=== PATIENT | female | born 1995 | race Caucasian/White ===

== ENCOUNTER 2016-11-28 10:44 | Outpatient (CLI) | payer OTHER | END 2016-11-28 10:45 | disposition home or self-care (01) | LOC: NC 10:44 | PROVIDERS: ATTEND Family Medicine | DX: O24.419 Gestational diabetes mellitus in pregnancy, unspecified control (principal); Z71.3 Dietary counseling and surveillance; Z68.30 Body mass index [BMI] 30.0-30.9, adult; Z3A.00 Weeks of gestation of pregnancy not specified ==

== ENCOUNTER 2016-12-09 11:02 | Outpatient (CLI) | payer OTHER ==
--- NOTE | 2016-12-09 13:09 | US ---
OB LIMITED COMPARISON: 12/07/2016 obstetric ultrasound limited HISTORY: Gestational age 32 weeks 1 day. hydronephrosis. Gestational diabetes Check amniotic fluid index. Technique: Transabdominal FINDINGS: position: Vertex heart rate: 150 bpm Amniotic fluid index: 14.8 cm (14.4 cm 50th percentile). kidneys: Right kidney renal pelvis diameter 6.6 mm. Left kidney renal pelvis diameter 4.4 mm. bladder and stomach: Normal, fluid-filled. IMPRESSION: 1. Normal amniotic fluid index 14.8 cm. 2. Right kidney grade 1 pelviectasis with renal pelvis diameters 6.6 mm. 97% of the babies with grade 1 pelviectasis have normal renal function. 3. Normal left kidney renal pelvis diameter of 4.4 mm.
== END 2016-12-09 11:52 | disposition home or self-care (01) ==
LOC: FBCOUT 11:02 → FBC 11:03 → FBCOUT 11:52
PROVIDERS: ATTEND Family Medicine
DX: O24.419 Gestational diabetes mellitus in pregnancy, unspecified control (principal); O36.8930 Maternal care for other specified fetal problems, third trimester, not applicable or unspecified; Z3A.32 32 weeks gestation of pregnancy

== ENCOUNTER 2016-12-12 11:18 | Outpatient (CLI) | payer OTHER ==
[2016-12-12 11:33] VITALS: BMI 30.6
== END 2016-12-12 12:13 | disposition home or self-care (01) ==
LOC: FBCOUT 11:18 → FBC 11:19 → FBCOUT 12:13
PROVIDERS: ATTEND Family Medicine
DX: O24.419 Gestational diabetes mellitus in pregnancy, unspecified control (principal); Z3A.00 Weeks of gestation of pregnancy not specified

== ENCOUNTER 2016-12-16 11:33 | Outpatient (CLI) | payer OTHER | END 2016-12-16 12:30 | disposition home or self-care (01) | LOC: FBCOUT 11:33 → FBC 11:34 → FBCOUT 12:30 | PROVIDERS: ATTEND Family Medicine | DX: O24.419 Gestational diabetes mellitus in pregnancy, unspecified control (principal); Z3A.00 Weeks of gestation of pregnancy not specified ==

== ENCOUNTER 2016-12-19 11:32 | Outpatient (CLI) | payer OTHER ==
[2016-12-19 11:59] VITALS: BMI 30.9
== END 2016-12-19 12:38 | disposition home or self-care (01) ==
LOC: FBCOUT 11:32 → FBC 11:40 → FBCOUT 12:38
PROVIDERS: ATTEND Family Medicine
DX: O24.415 Gestational diabetes mellitus in pregnancy, controlled by oral hypoglycemic drugs (principal); Z3A.00 Weeks of gestation of pregnancy not specified

== ENCOUNTER 2016-12-23 11:26 | Outpatient (CLI) | payer OTHER ==
[2016-12-23 11:47] VITALS: BMI 29.8
== END 2016-12-23 12:24 | disposition home or self-care (01) ==
LOC: FBCOUT 11:26 → FBC 11:27 → FBCOUT 12:24
PROVIDERS: ATTEND Family Medicine
DX: O24.415 Gestational diabetes mellitus in pregnancy, controlled by oral hypoglycemic drugs (principal); Z3A.34 34 weeks gestation of pregnancy

== ENCOUNTER 2016-12-26 11:38 | Outpatient (CLI) | payer OTHER | END 2016-12-26 12:25 | disposition home or self-care (01) | LOC: FBC 11:38 → FBCOUT 11:38 | PROVIDERS: ATTEND Family Medicine | DX: O24.419 Gestational diabetes mellitus in pregnancy, unspecified control (principal); Z3A.00 Weeks of gestation of pregnancy not specified ==

== ENCOUNTER 2016-12-30 11:31 | Outpatient (CLI) | payer OTHER ==
[2016-12-30 11:57] VITALS: BMI 30.6
== END 2016-12-30 12:37 | disposition home or self-care (01) ==
LOC: FBCOUT 11:31 → FBC 11:32 → FBCOUT 12:37
PROVIDERS: ATTEND Family Medicine
DX: O26.899 Other specified pregnancy related conditions, unspecified trimester (principal); O24.419 Gestational diabetes mellitus in pregnancy, unspecified control; Z3A.35 35 weeks gestation of pregnancy
CPT/HCPCS: 87081; 76816; 59025; G0463

== ENCOUNTER 2017-01-02 11:40 | Outpatient (CLI) | payer OTHER ==
[2017-01-02 11:56] VITALS: BMI 31.5
== END 2017-01-02 12:24 | disposition home or self-care (01) ==
LOC: FBCOUT 11:40 → FBC 11:50 → FBCOUT 12:24
PROVIDERS: ATTEND Family Medicine
DX: O24.415 Gestational diabetes mellitus in pregnancy, controlled by oral hypoglycemic drugs (principal); Z3A.35 35 weeks gestation of pregnancy

== ENCOUNTER 2017-01-06 11:29 | Outpatient (CLI) | payer OTHER | END 2017-01-06 12:08 | disposition home or self-care (01) | LOC: FBCOUT 11:29 → FBC 11:31 → FBCOUT 12:08 | PROVIDERS: ATTEND Family Medicine | DX: O24.415 Gestational diabetes mellitus in pregnancy, controlled by oral hypoglycemic drugs (principal); Z3A.36 36 weeks gestation of pregnancy ==

== ENCOUNTER 2017-01-09 11:21 | Outpatient (CLI) | payer OTHER | END 2017-01-09 12:14 | disposition home or self-care (01) | LOC: FBCOUT 11:21 → FBC 11:22 → FBCOUT 12:14 | PROVIDERS: ATTEND Family Medicine | DX: O24.415 Gestational diabetes mellitus in pregnancy, controlled by oral hypoglycemic drugs (principal); Z3A.36 36 weeks gestation of pregnancy ==

== ENCOUNTER 2017-01-13 11:56 | Outpatient (CLI) | payer OTHER ==
[2017-01-13 12:16] VITALS: BMI 31.7
== END 2017-01-13 12:43 | disposition home or self-care (01) ==
LOC: FBCOUT 11:56 → FBC 12:13 → FBCOUT 12:43
PROVIDERS: ATTEND Family Medicine
DX: O24.415 Gestational diabetes mellitus in pregnancy, controlled by oral hypoglycemic drugs (principal); Z3A.37 37 weeks gestation of pregnancy

== ENCOUNTER 2017-01-16 11:24 | Outpatient (CLI) | payer OTHER | END 2017-01-16 12:10 | disposition home or self-care (01) | LOC: FBCOUT 11:24 → FBC 11:25 → FBCOUT 12:10 | PROVIDERS: ATTEND Family Medicine | DX: O24.419 Gestational diabetes mellitus in pregnancy, unspecified control (principal); Z36 Encounter for antenatal screening of mother; Z12.11 Encounter for screening for malignant neoplasm of colon; Z3A.37 37 weeks gestation of pregnancy ==

== ENCOUNTER 2017-01-20 11:19 | Outpatient (CLI) | payer OTHER | END 2017-01-20 12:25 | disposition home or self-care (01) | LOC: FBCOUT 11:19 → FBC 11:20 → FBCOUT 12:25 | PROVIDERS: ATTEND Family Medicine | DX: O24.419 Gestational diabetes mellitus in pregnancy, unspecified control (principal); Z3A.00 Weeks of gestation of pregnancy not specified ==

== ENCOUNTER 2017-01-24 16:00 | Inpatient (IN) | payer OTHER ==
[2017-01-24] MEDS ORDERED: LIDOCAINE Viscous 2% 15 ML UDCUP ONE (16:32)
[2017-01-24] MEDS ORDERED: SODIUM CHLORIDE 0.9% FLUSH 10 ML ONE (16:32)
[2017-01-24] MEDS ORDERED: MINERAL OIL 25 ML BOT ONE (16:32)
[2017-01-24] MEDS ORDERED: OXYTOCIN 10 UNITS/ML VIAL ONE (16:32)
[2017-01-24] MEDS ORDERED: LIDOCAINE 1% (PRES FREE) 30 ML VIAL ONE (16:32)
[2017-01-24] MEDS ORDERED: IV START KIT ONE (16:32)
[2017-01-24] MEDS ORDERED: OXYTOCIN IN LR 500 ML IV ONE (16:33)
[2017-01-24] MEDS ORDERED: PUMP TUBING ONE (16:33)
[2017-01-24 17:55] VITALS: BMI 31.7
[2017-01-24] MEDS ORDERED: PENICILLIN G POTASSIUM 5 MMU in NS 0.9% (MINI-BAG PLUS) 100 ML IV ONE (18:09)
--- NOTE | 2017-01-24 18:21 | PCMAN ---
OB Admission Note - History : 1 Term: 0 : 0 Abortions (S&E): 0 Livin Gestational Age (weeks): 39 Days (#/7): 0 Admit Cervical Dilation:: 1 Admit Cervical Effacement (%):: 50 (Macedo score 7) Admit Station:: -1 Admit Presentaton:: veretx Membrane Status: Intact Contractions: Yes Contraction Frequency:: irregular mild Summary of Course:: 21 y/o female w/ an WILMA of 01/31/17 by LMP c/w 1st trimester U/S. complicated by Chlamydia infection, GDMA2, Rubella non-immune and + GBS. Pt. is on 7.5mg of Glyburide BID. Her growth U/S at 35wks showed a fetus in the 63%. Pt. presents today for IOL secondary to GDMA2 status. Pt. has had intermittent cramping since Friday and lost her mucus plug a few days ago. Pt. denies HARDIN's , visual changes or SROMS. Had some vaginal spotting s/p having her membranes swipped on Friday. - Labs Blood Type: A (+) positive (antibody negative) Rubella Status: Non-immune GBS Status: Positive Abnormal Labs: Chlamydia Positive (07/12 +. JANAK ngtv. 08/11. 35wk screen ngtv) - Physical Exam General: Afebrile Psych/Mental Status: Mood/Affect Appropriate Neurological: Alert HEENT: Mucous membr. moist/pink Lungs: Clear to Auscultation Bilaterally Cardiovascular: Regular Rate and Rhythm, Rubs Genitourinary: Normal Female Genitalia Skin: Normal Color - Problems (1) Gestational diabetes mellitus (GDM) affecting Status: Acute Code: O24.419Assessment/Plan: Admit for IOL Almendarez bulb induction Macedo score7 See nusring orders for full BS monitoring and sliding scale
[2017-01-24] MEDS ORDERED: INSULIN ASPART (DOSE) 100 UNITS/1 ML SUB-Q PRN (18:23)
[2017-01-24 19:01] LABS: HEMOGLOBIN 12.4 gm/l (12.0-16.0); MEAN CELL VOLUME 95.1 fl (81.0-99.0); MEAN CORPUSCULAR HEMOGLOBIN 31.9 pg (27.0-31.0); MEAN CORPUSCULAR HGB CONC 33.5 g/dl (33.0-37.0)
[2017-01-24] MEDS ORDERED: ACETAMINOPHEN 500 MG TABLET PO PRN (19:34)
[2017-01-24] MEDS ORDERED: GLYBURIDE 5 MG TABLET PO SCH (20:00)
[2017-01-24] MEDS: GLYBURIDE 5 MG TABLET PO SCH (20:19)
[2017-01-24] MEDS ORDERED: ZOLPIDEM TARTRATE 5 MG TABLET PO ONE (22:30)
[2017-01-24] MEDS: LACTATED RINGERS 1,000 ML IV SCH (23:11)
[2017-01-25] MEDS: GLYBURIDE 5 MG TABLET PO SCH ×2 (08:08→21:28)
[2017-01-25] MEDS: PENICILLIN G 3 MIL UNIT PREMIX 3 MMU in Premix (D5W) 50 ml 1 EACH IV SCH ×3 (08:40→20:17)
--- NOTE | 2017-01-25 09:12 | PDOC36 ---
Provider Note Subject: S: NO U/V sympts. Almendarez catheter fell out over night, felt campy in the beginning but not since then. O: VSS, afebrile. BS max 126 overnight, not treated by nursing since fasting and over night, she was worried about hypoglycemia. . CVX: 2.5/50/-1 EFM:BL 130. Mod. variability. Accs. to 150. NO VD or LD. Category 1 strip (833- 988AM) [place]: irritability A/P: @ 39 1/7 wks GA GDMA2 Carrillo score 8. Given her primigravida status and GBS positive status I felt that a chemical cervical ripening agent would be the best course at this time. Start oral Cytotec protocol. Asses if not rick after 2 doses to see if no cervical change at that point consider AROM.
[2017-01-25] MEDS: MISOPROSTOL 25 MCG TABLET PO SCH ×3 (09:22→18:59)
[2017-01-25] MEDS ORDERED: NS 0.9% (MINI-BAG PLUS) 100 ML IV ONE (15:51)
[2017-01-25] MEDS ORDERED: PENICILLIN G POTASSIUM 5 MMU VIAL ONE (15:51)
[2017-01-25] MEDS ORDERED: PENICILLIN G POTASSIUM 5 MMU in NS 0.9% (MINI-BAG PLUS) 100 ML IV ONE (16:00)
[2017-01-25] MEDS: LACTATED RINGERS 1,000 ML IV SCH ×4 (16:16→22:40)
--- NOTE | 2017-01-25 16:28 | PDOC36 ---
Provider Note Subject: S: Pt. s/p 1 dose of Cytotec, feeling crampy pain w/ ctxs. Suzanne Q 4-5min despite receiving cytotec 6hrs ago. O: VSS, afebrile. BS's at goal cvx: /-1 FHT: ([id number]) BL 130 w/ accs to 150. Moderate variability. No VD or LD. CAtegory 1 strip Brock: ctxs Q 4-5 min A/P: 21 y/o female GDMA2 induction AROM performed, clear fluid PCN started. limit cervical checks from now on.
[2017-01-25] MEDS ORDERED: FENTANYL 100 MCG/2 ML VIAL IV ONE (17:35)
[2017-01-25] MEDS ORDERED: CALCIUM CARBONATE 500 MG TAB.CHEW PO PRN (17:36)
[2017-01-25] MEDS ORDERED: ONDANSETRON 4 MG/2ML 2 ML VIAL IM ONE (17:36)
[2017-01-25] MEDS ORDERED: EPIDURAL PUMP SET ONE (18:22)
[2017-01-25] MEDS ORDERED: FENTANYL/ROPIVACAINE EPIDURAL 250 ML EP ONE (18:22)
[2017-01-25] MEDS ORDERED: EPHEDRINE SULFATE 50 MG/ML 1ML VIAL IV PRN (19:00)
[2017-01-25] MEDS ORDERED: DIPHENHYDRAMINE HCL 50 MG/1 ML VIAL IV PRN (19:00)
[2017-01-25] MEDS ORDERED: SODIUM CHLORIDE 0.9% 500 ML IV PRN (19:00)
[2017-01-25] MEDS ORDERED: LACTATED RINGERS 500 ML IV PRN (19:00)
[2017-01-25] MEDS ORDERED: METOCLOPRAMIDE HCL 5 MG/ML 2ML VIAL IV PRN (19:00)
[2017-01-25] MEDS ORDERED: NALBUPHINE HCL 20 MG/ML AMP IV PRN (19:00)
[2017-01-25] MEDS ORDERED: NALOXONE HCL 0.4 MG/ML VIAL IV PRN (19:00)
[2017-01-25] MEDS: FENTANYL/ROPIVACAINE EPIDURAL 250 ML EP SCH (19:00)
[2017-01-25] MEDS ORDERED: ONDANSETRON 4 MG/2ML 2 ML VIAL IV PRN (19:00)
[2017-01-25] MEDS ORDERED: EPIDURAL PROCEDURE TRAY ONE (19:05)
[2017-01-25] MEDS ORDERED: PENICILLIN G 3 MIL UNIT PREMIX 50 ML IV ONE (20:03)
[2017-01-25] MEDS: OXYTOCIN IN LR 500 ML IV PRN (23:05)
[2017-01-26] MEDS ORDERED: PENICILLIN G 3 MIL UNIT PREMIX 50 ML IV ONE ×3 (00:04→08:30)
[2017-01-26] MEDS: PENICILLIN G 3 MIL UNIT PREMIX 3 MMU in Premix (D5W) 50 ml 1 EACH IV SCH ×3 (00:19→08:39)
[2017-01-26] MEDS: LACTATED RINGERS 1,000 ML IV SCH ×7 (02:53→12:25)
[2017-01-26] MEDS: FENTANYL/ROPIVACAINE EPIDURAL 250 ML EP SCH (06:21)
--- NOTE | 2017-01-26 07:23 | PDOC36 ---
Provider Note Subject: S: NO overnight events. Feeling some intense pain in the R hip area for the last 30 min or so. Per nursing has had some bloody show. Dose # 3 of PCN. O: Afebrile. VSS. BS's at goal. Non above 110 over night. 3MU of Pitocin. cvx: 9.5 (rim on the Right); 100%/+1 LOT position [place]: Ctxs Q2-5min FHT: [id number]. BL 135-140. Minimal to moderate variability. Accs. to 155. Category 1 strip. A/P: 21 y/o female 39 2/7 wks GA GDMA2 and GBS +. IOL for GDMA2. No evidence of infection at this time. slow progression of 1st stage due to mal position, but has made cervical change continue positional changes, specifically now exaggerated DAY on the Right in an effort to rotate baby. Continue PCN. Observe for signs of infection.
[2017-01-26] MEDS: OXYTOCIN IN LR 500 ML IV PRN ×3 (07:50→09:43)
[2017-01-26] MEDS: GLYBURIDE 5 MG TABLET PO SCH ×2 (08:42→15:15)
[2017-01-26] MEDS ORDERED: LIDOCAINE 1% (PRES FREE) 30 ML VIAL SUB-Q ONE (11:11)
[2017-01-26] MEDS ORDERED: OXYTOCIN IN LR 500 ML IV ONE (11:11)
[2017-01-26] MEDS ORDERED: LANOLIN 50 APPLIC/7G TUBE TP PRN (11:32)
[2017-01-26] MEDS ORDERED: BENZOCAINE/MENTHOL 60 APPLIC/BOT TP PRN (11:32)
[2017-01-26] MEDS ORDERED: HYDROCODONE/ACETAMINOPHEN 5/325MG TABLET PO PRN (11:32)
[2017-01-26] MEDS ORDERED: MEASLES,MUMPS&RUBELLA VACCINE 0.5 ML VIAL SUB-Q V ONE (11:32)
[2017-01-26] MEDS ORDERED: DOCUSATE SODIUM 100 MG CAPSULE PO PRN (11:32)
[2017-01-26] MEDS ORDERED: SODIUM CHLORIDE 0.9% FLUSH 0 ML ONE (11:55)
[2017-01-26] MEDS: IBUPROFEN 800 MG TABLET PO PRN (13:56)
[2017-01-26] MEDS ORDERED: GLYBURIDE 5 MG TABLET PO SCH (17:00)
[2017-01-27] MEDS: IBUPROFEN 800 MG TABLET PO PRN ×4 (01:36→21:43)
[2017-01-27 06:36] LABS: HEMATOCRIT 32.7 % (37.0-47.0)
--- NOTE | 2017-01-27 07:31 | PCMDEL ---
Delivery Note - Labor 1st stage (hr/min):: 07/01 2nd stage (hr/min):: 0 3rd stage (hr/min):: 0 Total (hr/min):: 07/31 - Delivery Delivery (Date): 01/26/17 Delivery (Time): 11:00 Infant Gender: Female Presentation: Cephalic Position: OA Umbilical Cord: 3 Vessel Delayed Cord Clamping:: > 3 min Placenta:: intact EBL:: 200mL Perineum:: 1 st degree vaginal Suture:: 3-0 vicryl Anesthesia/Meds:: LEP Length ROM:: 18' 55''
--- NOTE | 2017-01-27 07:48 | PDOC44 ---
- Subjective Day: 1 Reports Flatus, Reports Pain Tolerable, Reports , Reports Lochia Moderate - Objective Temp Pulse Resp BP Pulse Ox 98.9 F 75 16 120/72 01/27/17 01:23 01/27/17 01:23 01/27/17 01:23 01/27/17 01:23 Lab Results 01/27/17 06:15 Hgb 11.0 L Hct 32.7 L 01/27/17 01/26/17 01/26/17 06:33 19:44 15:13 POC Capillary Glucose 66 L 140 H 133 H Current Medications Generic Name Dose Route Start Last Admin Trade Name Freq PRN Reason Stop Dose Admin Acetaminophen/Hydrocodone Bitart 1 - 2 tab 01/26/17 11:32 Vershire 5/325 PO Q4H PRN Pain (Moderate) Benzocaine/Menthol 1 applic 01/26/17 11:32 01/26/17 11:59 Dermoplast TP 1 bot PRN PRN Administration Patient Comfort Docusate Sodium 100 mg 01/26/17 11:32 Colace PO DAILY PRN Comfort Emollient Ointment 1 applic 01/26/17 11:32 Rgb-G-Echpyy TP PRN PRN sore nipples Glyburide 7.5 mg 01/26/17 12:30 01/26/17 15:15 Diabeta PO Not Given 0800 SERJIO Glyburide 10 mg 01/26/17 17:00 01/26/17 18:04 Diabeta PO 10 mg 1700 SERJIO Administration Ropivacaine/Fentanyl/NS 250 mls @ 0 mls/hr 01/25/17 19:00 01/26/17 06:21 Fentanyl 2 Mcg/Ml + Ropivacaine 0.125% Ep Bag EP 15 mls/hr EPI SERJIO Administration Protocol Per Protocol Ibuprofen 800 mg 01/26/17 11:32 01/27/17 01:36 Motrin PO 800 mg Q6H PRN Administration Pain (Mild) - Physical Exam Psych/Mental Status: Mood/Affect Appropriate Neurological: Alert HEENT: Mucous membr. moist/pink Lungs: Clear to Auscultation Bilaterally Cardiovascular: Regular Rate and Rhythm, Normal S1, Normal S2 Breast: Soft Fundus: Below Umbilicus Abdomen: Normal Bowel Sounds - Problems:Assessment/Plan (1) Gestational diabetes mellitus (GDM) affecting Status: AcuteAssessment/Plan: Decrease Glyburide PM dose since tight control not as tightly needed cont. to encourage pt. to limit CHO's good colostrum supply despite being GDM (2) care and examination of lactating mother Status: AcuteAssessment/Plan: continue to support BF continue routine PP care observe for preclampsia even in PP period anticipate D/C tmw Disposition: Anticipate DC Home Tomorrow
[2017-01-27] MEDS: GLYBURIDE 5 MG TABLET PO SCH (09:45)
[2017-01-27] MEDS: FENTANYL/ROPIVACAINE EPIDURAL 250 ML EP SCH (16:00)
[2017-01-27] MEDS ORDERED: GLYBURIDE 2.5 MG TABLET PO SCH (19:45)
[2017-01-27] MEDS: GLYBURIDE 2.5 MG TABLET PO SCH (21:43)
[2017-01-28] MEDS: IBUPROFEN 800 MG TABLET PO PRN (03:16)
--- NOTE | 2017-01-28 07:47 | PDOC39B ---
Hospital Course: ADMIT DATE: 01/24/17 DISCHARGE DATE: 01/28/17 ADMISSION DIAGNOSES: GDMA2 GBS positive mom PROCEDURES: IOL; HISTORY OF PRESENT ILLNESS: 21 year old G1 T0 L0 at 39 weeks 2 days presenting for IOL for GMDA2. See admission note for full details. HOspital course: Admitted Folley bulb placed. Once bulb fell out Cytotect X 1 given. AROM performed hours after this since rick too often for 2nd Cytotec dose. Pt. had LEP placed and pitocin given for augementation of labor. Had ,. Seee delivery note for full details and times. By day of discharge the patient was ambulating, eating, voiding, and passing flatus without difficulty. Pain was controlled and lochia was appropriate. She was [] well - Physical Exam Vital Signs: Temp Pulse Resp BP Pulse Ox 98.5 F 75 16 123/73 01/28/17 03:12 01/28/17 03:12 01/28/17 03:12 01/28/17 03:12 General: Afebrile Psych/Mental Status: Mood/Affect Appropriate, Bonding Well Neurological: Alert HEENT: Mucous membr. moist/pink Lungs: Clear to Auscultation Bilaterally Cardiovascular: Regular Rate and Rhythm Fundus: Firm - Discharge Diagnosis (1) Gestational diabetes mellitus (GDM) affecting Status: AcuteAssessment/Plan: BS's coming down but Glyburide would benefit milk production therefore will D?C w/ Glyburide 1.25mg po BID and told pt. if FBS < 80 consistently and PP's < 140 consistently then could stop Glyburide all together. (2) care and examination of lactating mother Status: AcuteAssessment/Plan: continue to support BF continue routine PP care - Discharge Plan Condition: Good Disposition: Home Follow-Up: Maura Padgett MD [Primary Care Provider] - In 6 weeks
[2017-01-28 07:56] VITALS: BP 121/80
[2017-01-28] MEDS: GLYBURIDE 2.5 MG TABLET PO SCH (10:44)
== END 2017-01-28 12:30 | disposition home or self-care (01) | DRG 775 ==
LOC: FBC 16:00 → EDSTATUS 01-31 15:59
PROVIDERS: ADMIT Family Medicine; ATTEND Family Medicine
PROC: 0U7C7ZZ Dilation of Cervix, Via Natural or Artificial Opening (ICD-10-PCS; 2017-01-24)
PROC: 10907ZC Drainage of Amniotic Fluid, Therapeutic from Products of Conception, Via Natural or Artificial Opening (ICD-10-PCS; 2017-01-25)
PROC: 00HU33Z Insertion of Infusion Device into Spinal Canal, Percutaneous Approach (ICD-10-PCS; 2017-01-25)
PROC: 10E0XZZ Delivery of Products of Conception, External Approach (ICD-10-PCS; principal; 2017-01-27)
PROC: 0HQ9XZZ Repair Perineum Skin, External Approach (ICD-10-PCS; 2017-01-27)
DX: O24.425 Gestational diabetes mellitus in childbirth, controlled by oral hypoglycemic drugs (principal); O70.0 First degree perineal laceration during delivery; O99.824 Streptococcus B carrier state complicating childbirth; Z37.0 Single live birth; O32.9XX0 Maternal care for malpresentation of fetus, unspecified, not applicable or unspecified; Z3A.39 39 weeks gestation of pregnancy; Z86.19 Personal history of other infectious and parasitic diseases

== ENCOUNTER 2017-01-30 12:58 | Outpatient (CLI) | payer OTHER | END 2017-01-30 12:59 | disposition home or self-care (01) | LOC: BABIESSH 12:58 | PROVIDERS: ATTEND Family Medicine | DX: Z39.1 Encounter for care and examination of lactating mother (principal) ==

== ENCOUNTER 2017-02-03 13:57 | Outpatient (CLI) | payer OTHER | END 2017-02-03 13:58 | disposition home or self-care (01) | LOC: BABIESSH 13:57 | PROVIDERS: ATTEND Family Medicine | DX: Z39.1 Encounter for care and examination of lactating mother (principal) ==

== ENCOUNTER 2017-02-11 14:13 | Outpatient (CLI) | payer OTHER | END 2017-02-11 14:14 | disposition home or self-care (01) | LOC: BABIESSH 14:13 | PROVIDERS: ATTEND Family Medicine | DX: Z39.1 Encounter for care and examination of lactating mother (principal) ==